=== PATIENT | female | born 1995 | race Caucasian/White ===

== ENCOUNTER → 2017-01-05 | Outpatient (CLI) | payer OTHER ==
--- NOTE | 2017-01-06 07:44 | RAD ---
Indication: Size and date discrepancy. There is a single fetus in a cephalic presentation. The placenta is posterior. The amniotic fluid volume is normal. No gross abnormalities are identified. heart rate was recorded at 139 bpm. The four-chamber heart view is visualized. There is a three-vessel cord. The cord insertion was visualized. bladder, stomach, kidneys, spine and brain were visualized. Biometry measurements are as follows: BPD 6.8 cm 27 weeks 3 days, head circumference 25.7 cm 28 weeks 0 days, abdominal circumference 23.6 cm 27 weeks 6 days, femur length 5.4 cm 28 weeks 4 days. Impression: Single live IUP 28 weeks 0 days gestational age. The estimated date of confinement sonographically 03/30/2017.
== END | disposition home or self-care (01) ==
LOC: US 15:39
PROVIDERS: ATTEND Obstetrics & Gynecology
DX: O26.843 Uterine size-date discrepancy, third trimester (principal); Z3A.28 28 weeks gestation of pregnancy
CPT/HCPCS: 76805